=== PATIENT | female | born 1985 | race Caucasian/White ===

== ENCOUNTER → 2018-07-29 10:49 | Outpatient (CLI) | payer BC, SELFPAY ==
[2018-07-31 11:25] LABS: HPV Reflexed? NOT INDICATED
== END ==
PROVIDERS: Visit Provider Obstetrics & Gynecology
DX: Z12.4 Encounter for screening for malignant neoplasm of cervix (principal)
CPT/HCPCS: 88175; G0145

== ENCOUNTER 2021-11-02 11:26 | Outpatient (CLI) | payer BC, SELFPAY ==
[2021-11-06 21:49] LABS: HPV APTIMA, High Risk Negative (Negative)
== END 2021-11-02 23:59 | disposition short-term general hospital (02) ==
PROVIDERS: Visit Provider Student in an Organized Health Care Education/Training Program
DX: Z12.4 Encounter for screening for malignant neoplasm of cervix (principal)
CPT/HCPCS: 87624; 88175; G0145